=== PATIENT | female | born 1995 | race Two or more races ===

== ENCOUNTER → 2024-04-25 | Outpatient (CLI) | payer MEDICAID, SELFPAY ==
--- NOTE | 2024-04-25 10:24 | XR_ITS ---
Examination: OB Transvaginal ultrasound of the pelvis, complete Technique: Transvaginal sonographic images pelvis performed using kuhn scale imaging Exam date and time: April 25, 2024 at 1052 hours INDICATIONS: Vaginal bleeding and lower back pain beginning one week ago. FINDINGS: Uterus 11.0 x 7.2 x 7.9 cm anteverted pole 1.3 cm corresponds to 7 weeks 3 days gestational age No cardiac motion Right ovary 2.6 x 1.6 x 2.0 cm arterial flow Left ovary 1.8 x 2.4 x 1.6 cm arterial flow IMPRESSION: Findings suspicious for demise, short-term follow-up transvaginal pelvic sonography recommended.
== END | disposition home or self-care (01) ==
PROVIDERS: Referring Provider Obstetrics & Gynecology; Visit Provider Obstetrics & Gynecology
DX: O20.9 Hemorrhage in early pregnancy, unspecified (principal)
CPT/HCPCS: 76817

== ENCOUNTER 2024-11-01 09:22 | Outpatient (AMB) | payer MEDICAID, SELFPAY ==
[2024-11-01 09:34] VITALS: BP 123/77; PULSE 89; RESP 18; TEMP 36.7; O2SAT 96; BMI 22.4
--- NOTE | 2024-11-01 09:34 | AMB.OBINITIA ---
Vital Signs 11/01/24 09:34 Height 1.57 m Height Method Stated Weight 55.508 kg Weight Measurement Method Standing Scale BMI 22.4 BP 123/77 Blood Pressure Source Automatic Cuff Blood Pressure Location Left Upper Arm Position Sitting Respiration 18 Pulse 89 Pulse Source Monitor Temp 98.1 F Temp Source Oral Pulse Oximetry (%) 96 Oxygen Delivery Method Room Air Allergies/Home Meds Allergies & Medications Allergies No Known Allergies Allergy (Verified 11/01/24 09:35) Medication Reconciliation vitamin with calcium no.72-iron 27 mg-folic acid 1 mg tablet ( Vitamins Plus Low Iron) 1 tab PO QDAY 90 days #90 tabs 11/01/24 [Rx] Intake Visit Data Collection New Patient or Established: Established Patient (seen at [facility] within 3 years) Reason for Visit:: INITIAL CARE Seen by Clinical Staff ONLY (RN/MA): No Digital Composer Required: No Do You Feel Safe at Home: Yes Authorities Contacted: N/A PCP or OBGYN visit in last 3 months: No Hx Now: Yes Are you currently on any form of Control: No Last menstrual period: 08/29/24 Pain Present Currently: No Pain Scale Used: Ruiz-Santiago/Numerical Pain scale:: 0 Smoking Status Smoking Status: Never smoker Questionnaires Covid-19 Vaccine Questionnaire Has patient been vacinated for Covid-19 Have you been vacinated for Covid-19: Yes PHQ-9 PHQ-2 Over the last 2 weeks, how often have you been bothered by any of the following problems? 1. Little interest or pleasure in doing things: not at all 2. Feeling down, depressed, or hopeless: not at all Total score: 0 PHQ-9 3. Trouble falling or staying asleep, or sleeping too much: Not at all 4. Feeling tired or having little energy: Not at all 5. Poor appetite or overeating: Not at all 6. Feeling bad about yourself - or that you are a failure or have let yourself or your family down: Not at all 7. Trouble concentrating on things, such as reading the newspaper or watching television: Not at all 8. Moving or speaking so slowly that other people could have noticed? - Or the opposite - being so fidgety or restless that you have been moving around a lot more than usual: not at all 9. Thoughts that you would be better off or of hurting yourself in some way: Not at all Total score: 0 Source: Developed by Drs. Fabricio Torres, Juany Rivas, Luis Marshall and colleagues, with an educational cristo from [employer]. Depression screen completed yes Social History Living Situation History Marital Status: Lives With: Family Housing: House Housing Other:: Pt lives with and dtr Tobacco History Smoking Status: Never smoker Second Hand Smoke Exposure: No Alcohol History Alcohol Intake: Never Domestic Abuse History Do You Feel Safe at Home: Yes History of Present Illness HPI Narrative Marcia Loera, , presents for initial intake. LMP: 08-29-2024. CHERRIE based on U/S: June 05, 2025. Currently estimated at 9 weeks and 4 days gestation. OB History: - Prior pregnancies: , one vaginal delivery, one miscarriage requiring DNC in December of last year - Prior C-sections, miscarriages, ectopics, or terminations: Yes, one miscarriage requiring DNC in December of last Medical History: - Chronic conditions (e.g., DM, HTN, thyroid disease): None mentioned - Surgical history: DNC in December of last year - Medications: None mentioned - Allergies: None mentioned - Psychosocial: Tobacco [N], Alcohol [N], Illicit drugs [N] - IPV screening: [N], Depression screening: [N] Family History: - Genetic or congenital disorders: Patient's daughter has primary ciliary dyskinesia and dextrocardia - 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 Past Medical History: No Hx Neurological Disorders, No Hx Breast Cancer, No Hx Cardiac Disorders, No Hx Cancer, No Hx Blood Disorders, No Hx Gastrointestinal Disorders, No Hx Renal Disease, No Hx Diabetes Mellitus Type 1 and No Hx Diabetes Mellitus Type 2 OB Initial Visit OB Flowsheet OB Flowsheet Initial Weight: Not Recorded Date <del>?</del> EGA Weight BP Alb Glu CTX Pres Fundal ht FHR Mov Dilation Station Effacement Hx Notes Visit Note 11/01/24 <del>?</del> 9w 1d 55.508 kg 123/77 Marcia Loera, at 9+4 wks for initial intake, LMP 08-29-24, CHERRIE 2-2-26 per U/S, hx of and SAB requiring D&C 12/25, daughter with primary ciliary dyskinesia and dextrocardia U/S shows IUP with FHB 173 bpm confirming 9+4 wks Menstrual History Menstrual reliability: definite Flow: normal Menstrual regularity: regular Monthly: Yes Age at menarche: 10 On control pills at conception: No Associated symptoms (LMP): Reports nausea, breast tenderness and bloating OB History : 4 Para: 1 Hx Total # of Abortions (Spontaneous & Elective): 2 # of Living Children: 1 Delivery History 1st : Child's name: RUDY date: 08/27/19 sex: female Gestational age at delivery (weeks): 40 Delivery type: History of depression before or after : No Infection History & Risk Evaluation History of STDs: none Genetic Screening & History Genetic Screening/Teratology Counseling - Includes patient, baby's father, or anyone in either family with: 1. Patient's age 35 years or older as of estimated date of delivery: No 2. Thalassemia (Moroccan, Iraqi, Mediterranean, or Background); MCV less than 80: No 3. Neural Tube Defect (Meningomyelocele, Spina Bifida, or Anencephaly): No 4. Congenital Heart Defect: No 5. Down Syndrome: No 6. Jesús-Sachs (Ashkenazi Rastafarian, Cajun, [place] Islander): No 7. Mattie Disease (Ashkenazi Rastafarian): No 8. Familial Dysautonomia (Ashkenazi Rastafarian): No 9. Sickle Cell Disease or Trait (): No 10. Hemophilia or other blood disorders: No 11. Muscular Dystrophy: No 12. Cystic Fibrosis: No 13. Trace's Chorea: No 14. Mental Retardation/Autism: No 15. Other inherited genetic or chromosomal disorder: No 16. Maternal Metabolic Disorder (EG,TYPE 1 Diabetes, PKU): No 17. Patient or baby's father had a child with defects not listed above: No 18. Recurrent loss or a stillbirth: No 19. Medications (including supplements, vitamins, herbs or otc drugs)/illicit/recreational drugs/alcohol since last menstrual period: No 20. Any other: No Infection History 1. Live with someone with TB or exposed to TB: No 2. Rash or viral illness since last menstrual period: No 3. Hepatitis B,C: No Other (see comments) Source: [employer] Review of Systems Gastrointestinal Gastrointestinal: Reports bloating and Reports nausea Exam General General Appearance: alert, in no apparent distress and healthy appearing Head Head exam: atraumatic Neck Neck exam: Present normal inspection and trachea midline Chest Chest inspection: Present normal inspection and symmetric chest wall rise External exam: Present normal external exam; Absent tenderness Neuro Neurological exam: Present oriented X3 Psych Psychiatric exam: Present normal affect and normal mood Office Procedures OB Clinic LOC & Office Proc's Nursing/Assessment Patient Status: Established Patient OB Clinic Nursing Assessment: Medication Reconciliation, Update PMH in EMR and Vital Signs OB Clinic Coordination of Care: Complex Care and Chronic Disease 1-5, Consent,records obtained, informed consent, Education Simp Pt/Fam, Lab and Imaging orders, Results/Orders obtained and Staff clarify orders Special Needs: Heart tones Established Patient Charge Established Patient Point Assignment: 135 Established Patient Point Charge: EP Level 4 (120-155) Assessment & Plan Diagnosis / Problem List (1) with prior adverse outcome, antepartum: Status: Acute (2) Supervision of high risk , unspecified, first trimester: Status: Acute Plan - Ultrasound: - site: Visualized - heartbeat: 173 bpm (normal for early ) - Gestational age: 9 weeks and 4 days Labs Ordered Today: - Initial panel - Blood type & antibody screen - CBC, RPR, HIV, HBsAg, Rubella IgG - GC/CT, UA & culture, Varicella IgG, - NIPT, SMA and CF Screen Plan: - Routine care initiated - vitamins started - Ultrasound ordered to confirm dating - Genetic screening options reviewed and patient accepts - Referral to MFM or nutrition if indicated Educated the patient on the importance of care, including taking vitamins with folic acid, iron, and calcium. Emphasized avoiding alcohol, smoking, and certain medications. Discussed common symptoms like nausea and fatigue, advising small, frequent meals and adequate hydration. Explained the need for regular check-ups and recommended safe physical activities. Instructed on signs of complications, such as severe cramping or bleeding, and when to seek immediate medical attention. Highlighted the importance of a balanced diet and avoiding high-risk foods. Encouraged open communication about any concerns or questions. Encouraged keeping up with all appointments and tests.
== END 2024-11-01 10:03 | disposition home or self-care (01) ==
PROVIDERS: Supervising Provider Obstetrics & Gynecology; Visit Provider Obstetrics & Gynecology
DX: O09.291 Supervision of pregnancy with other poor reproductive or obstetric history, first trimester (principal); Z3A.09 9 weeks gestation of pregnancy; Z87.59 Personal history of other complications of pregnancy, childbirth and the puerperium
CPT/HCPCS: 99214; G0463

== ENCOUNTER 2024-11-15 13:28 | Outpatient (AMB) | payer MEDICAID, SELFPAY ==
[2024-11-15 13:33] VITALS: BP 122/84; PULSE 108; RESP 17; TEMP 36.7; O2SAT 98; BMI 22.8
--- NOTE | 2024-11-15 13:33 | AMB.OBVISIT ---
Vital Signs 11/15/24 13:33 Height 1.57 m Height Method Measured Weight 56.302 kg Weight Measurement Method Standing Scale BMI 22.8 BP 122/84 Blood Pressure Source Automatic Cuff Blood Pressure Location Right Upper Arm Position Sitting Respiration 17 Pulse 108 H Pulse Source Monitor Temp 98.1 F Temp Source Temporal Artery Scan Pulse Oximetry (%) 98 Oxygen Delivery Method Room Air Allergies/Home Meds Allergies & Medications Allergies No Known Allergies Allergy (Verified 11/15/24 13:34) Medication Reconciliation vitamin with calcium no.72-iron 27 mg-folic acid 1 mg tablet ( Vitamins Plus Low Iron) 1 tab PO QDAY 90 days #90 tabs 11/01/24 [Rx Confirmed 11/15/24] Intake Visit Data Collection New Patient or Established: Established Patient (seen at [facility] within 3 years) Reason for Visit:: OBC Consent obtained for Telemed Visit: No Seen by Clinical Staff ONLY (RN/MA): No Information Support Project Manager Required: No Do You Feel Safe at Home: Yes Authorities Contacted: N/A PCP or OBGYN visit in last 3 months: Yes Date of Last PCP or OBGYN visit: 11/01/24 Hx Now: Yes Are you currently on any form of Control: No Pain Present Currently: No Pain Scale Used: Ruiz-Santiago/Numerical Pain scale:: 0 Smoking Status Smoking Status: Never smoker Questionnaires Covid-19 Vaccine Questionnaire Has patient been vacinated for Covid-19 Have you been vacinated for Covid-19: Yes PHQ-9 PHQ-2 Over the last 2 weeks, how often have you been bothered by any of the following problems? 1. Little interest or pleasure in doing things: not at all PHQ-9 8. Moving or speaking so slowly that other people could have noticed? - Or the opposite - being so fidgety or restless that you have been moving around a lot more than usual: not at all Source: Developed by Drs. Fabricio Torres, Juany Rivas, Luis Marshall and colleagues, with an educational cristo from [employer]. 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 Past Medical History: No Hx Neurological Disorders, No Hx Breast Cancer, No Hx Cardiac Disorders, No Hx Cancer, No Hx Blood Disorders, No Hx Gastrointestinal Disorders, No Hx Renal Disease, No Hx Diabetes Mellitus Type 1 and No Hx Diabetes Mellitus Type 2 Care OB Visit Log OB Flowsheet Initial Weight: Not Recorded Date <del>?</del> EGA Weight BP Alb Glu CTX Pres Fundal ht FHR Mov Dilation Station Effacement Hx Notes Visit Note 11/01/24 <del>?</del> 9w 1d 55.508 kg 123/77 Marcia Loera, at 9+4 wks for initial intake, LMP 08-29-24, CHERRIE 06-05-25 per U/S, hx of and SAB requiring D&C 12/25, daughter with primary ciliary dyskinesia and dextrocardia U/S shows IUP with FHB 173 bpm confirming 9+4 wks 11/15/24 <del>?</del> 11w 1d 56.302 kg 122/84 165 , 11w3d. No CTX/LOF/VB, good FM. Hx primary ciliary dyskinesia. Prior US noted dextrocardia. All initial labs reassuring: O+, rubella immune, negative RPR/Hep B/C/HIV/GC/CT. CBC WNL. NIPT negative for aneuploidy, male fetus. SMA and CF screening negative. Plan: Referred urgently to [facility] at [facility] for further evaluation of dextrocardia and possible ciliary dyskinesia; appointment scheduled for next Thursday. Pt to bring labs to MFM visit. F/u in 2 weeks to review MFM findings. Continue vitamins. CHERRIE Calculator Estimated Delivery Date Method Current WG Current Estimate 06/05/25 LMP (Certain) 11w 3d Other Estimates 06/04/25 Ultrasound #1 11w 4d Specific Issue/Plans Laboratory, Imaging, and Diagnostic Test Results - Initial visit: - Blood group: O positive - Rubella: Immune - RPN: Non-reactive - Hepatitis B: Negative - Hepatitis C: Negative - Antibody screen: Negative - HIV: Negative - Gonorrhea: Negative - Chlamydia: Negative - CBC: Within normal limits - Hemoglobin: 12.2 g/dL - Platelets: 3005 (likely a trailhead maintenance worker error, should be 300.5) - NIPT (Non-Invasive Testing): Negative - sex: Male - SMA (Spinal Muscular Atrophy) testing: Negative Office Procedures OB Clinic LOC & Office Proc's Nursing/Assessment Patient Status: Established Patient OB Clinic Nursing Assessment: Medication Reconciliation, Update PMH in EMR and Vital Signs OB Clinic Coordination of Care: Complex Care and Chronic Disease 1-5, Consent,records obtained, informed consent, Education Simp Pt/Fam and 4+ Authorizations needed Special Needs: Heart tones Established Patient Charge Established Patient Point Assignment: 130 Established Patient Point Charge: EP Level 4 (120-155) Assessment & Plan Diagnosis / Problem List (1) Supervision of high risk , unspecified, first trimester: Status: Acute (2) with prior adverse outcome, antepartum: Status: Acute Plan Marcia Ferrara, female patient with a history of primary ciliary dyskinesia, presenting for follow-up of with dextrocardia detected on previous ultrasound. with dextrocardia Assessment: Patient is with dextrocardia detected on previous ultrasound. Given the patient's history of primary ciliary dyskinesia, there is concern for potential ciliary dyskinesia as well, as this condition can cause dextrocardia. Initial screening tests, including blood type (O positive), rubella immunity, RPR, hepatitis B and C, HIV, gonorrhea, and chlamydia, were all negative or within normal limits. CBC showed normal hemoglobin (12.2) and platelets (3005). Non-invasive testing (NIPT) was negative for common chromosomal abnormalities, and gender was consistent with male. Spinal muscular atrophy (SMA) testing and cystic fibrosis carrier screening were both negative. 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 History & Symptoms: Ask about nausea, vomiting, bleeding, or cramping. Screen for mental health concerns. Physical Exam: Check weight, blood pressure, and heart rate (via Doppler). Education: Discuss nutrition, exercise, and avoiding harmful substances. Review safe medications and warning signs (e.g., severe pain, bleeding). Screening Tests: Offer genetic screening if not done. Discuss upcoming anatomy scan (18-20 weeks). Plan: Schedule next visit (typically 4 weeks later) and any needed tests. Keep it supportive, address concerns, and ensure clear follow-up instructions.
== END 2024-11-15 14:33 | disposition home or self-care (01) ==
LOC: HODSOBC 13:28
PROVIDERS: PCP Obstetrics & Gynecology; Referring Provider Obstetrics & Gynecology; Supervising Provider Obstetrics & Gynecology; Visit Provider Obstetrics & Gynecology
DX: O09.891 Supervision of other high risk pregnancies, first trimester (principal); O35.BXX0 Maternal care for other (suspected) fetal abnormality and damage, fetal cardiac anomalies, not applicable or unspecified; O35.8XX0 Maternal care for other (suspected) fetal abnormality and damage, not applicable or unspecified; O99.511 Diseases of the respiratory system complicating pregnancy, first trimester; Q34.8 Other specified congenital malformations of respiratory system; Z3A.11 11 weeks gestation of pregnancy
CPT/HCPCS: 99214; G0463

== ENCOUNTER 2024-12-05 10:21 | Outpatient (AMB) | payer MEDICAID, SELFPAY ==
[2024-12-05 10:28] VITALS: BP 118/82; PULSE 89; RESP 16; TEMP 36.5; O2SAT 98; BMI 22.8
--- NOTE | 2024-12-05 10:28 | AMB.OBVISIT ---
Vital Signs 12/05/24 10:28 Height 1.57 m Height Method Stated Weight 56.472 kg Weight Measurement Method Standing Scale BMI 22.8 BP 118/82 Blood Pressure Source Automatic Cuff Blood Pressure Location Left Upper Arm Position Sitting Respiration 16 Pulse 89 Pulse Source Monitor Temp 97.7 F Temp Source Oral Pulse Oximetry (%) 98 Oxygen Delivery Method Room Air Allergies/Home Meds Allergies & Medications Allergies No Known Allergies Allergy (Verified 12/05/24 10:29) Medication Reconciliation vitamins with calcium no.72-iron 27 mg-folic acid 1 mg tablet ( Vitamins Plus Low Iron) 1 tab PO QDAY 90 days #90 tabs 11/01/24 [Rx Confirmed 12/05/24] Intake Visit Data Collection New Patient or Established: Established Patient (seen at [facility] within 3 years) Reason for Visit:: CARE Seen by Clinical Staff ONLY (RN/MA): No 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 1. Little interest or pleasure in doing things: not at all 2. Feeling down, depressed, or hopeless: not at all Total score: 0 PHQ-9 3. Trouble falling or staying asleep, or sleeping too much: Not at all 4. Feeling tired or having little energy: Not at all 5. Poor appetite or overeating: Not at all 6. Feeling bad about yourself - or that you are a failure or have let yourself or your family down: Not at all 7. Trouble concentrating on things, such as reading the newspaper or watching television: Not at all 8. Moving or speaking so slowly that other people could have noticed? - Or the opposite - being so fidgety or restless that you have been moving around a lot more than usual: not at all 9. Thoughts that you would be better off or of hurting yourself in some way: Not at all Total score: 0 Source: Developed by Drs. Fabricio Torres, Juany Rivas, Luis Marshall and colleagues, with an educational cristo from [employer]. 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 Past Medical History: No Hx Neurological Disorders, No Hx Breast Cancer, No Hx Cardiac Disorders, No Hx Cancer, No Hx Blood Disorders, No Hx Gastrointestinal Disorders, No Hx Renal Disease, No Hx Diabetes Mellitus Type 1 and No Hx Diabetes Mellitus Type 2 Care OB Visit Log OB Flowsheet Initial Weight: Not Recorded Date <del>?</del> EGA Weight BP Alb Glu CTX Pres Fundal ht FHR Mov Dilation Station Effacement Hx Notes Visit Note 11/01/24 <del>?</del> 9w 1d 55.508 kg 123/77 Marcia Loera, at 9+4 wks for initial intake, LMP 08-29-24, CHERRIE 2 per U/S, hx of and SAB requiring D&C 12/25, daughter with primary ciliary dyskinesia and dextrocardia U/S shows IUP with FHB 173 bpm confirming 9+4 wks 11/15/24 <del>?</del> 11w 1d 56.302 kg 122/84 165 , 11w3d. No CTX/LOF/VB, good FM. Hx primary ciliary dyskinesia. Prior US noted dextrocardia. All initial labs reassuring: O+, rubella immune, negative RPR/Hep B/C/HIV/GC/CT. CBC WNL. NIPT negative for aneuploidy, male fetus. SMA and CF screening negative. Plan: Referred urgently to [facility] at [facility] for further evaluation of dextrocardia and possible ciliary dyskinesia; appointment scheduled for next Thursday. Pt to bring labs to MFM visit. F/u in 2 weeks to review MFM findings. Continue vitamins. 12/05/24 <del>?</del> 14w 0d 56.472 kg 118/82 absent 155 - Marcia Ferrara is a female presenting for a follow-up visit regarding her . - Patient had an ultrasound on November 25 at [facility]. - Reports being told by the environmental compliance technician that it was good - Denies significant weight gain at this stage of - Reports some forgetfulness, which she attributes to hormones - Continues to take prescribed vitamins Plan - Schedule next appointment in 2 months - Continue taking vitamins - Attend 18-20 week ultrasound appointment in January - Follow all precautions - Return sooner if any issues arise CHERRIE Calculator Estimated Delivery Date Method Current WG Current Estimate 06/05/25 LMP (Certain) 20w 6d Other Estimates 06/04/25 Ultrasound #1 21w 0d Specific Issue/Plans Laboratory, Imaging, and Diagnostic Test Results - Initial visit: - Blood group: O positive - Rubella: Immune - RPN: Non-reactive - Hepatitis B: Negative - Hepatitis C: Negative - Antibody screen: Negative - HIV: Negative - Gonorrhea: Negative - Chlamydia: Negative - CBC: Within normal limits - Hemoglobin: 12.2 g/dL - Platelets: 3005 (likely a health researcher error, should be 300.5) - NIPT (Non-Invasive Testing): Negative - sex: Male - SMA (Spinal Muscular Atrophy) testing: Negative Office Procedures OB Clinic LOC & Office Proc's Nursing/Assessment Patient Status: Established Patient OB Clinic Nursing Assessment: Medication Reconciliation, Update PMH in EMR and Vital Signs OB Clinic Coordination of Care: Complex Care and Chronic Disease 1-5, Consent,records obtained, informed consent, Education Simp Pt/Fam, 1 Ins Authorization, Lab and Imaging orders, Results/Orders obtained and Staff clarify orders Special Needs: Heart tones Established Patient Charge Established Patient Point Assignment: 150 Established Patient Point Charge: EP Level 4 (120-155) Assessment & Plan Diagnosis / Problem List (1) Supervision of high risk , unspecified, first trimester: Status: Acute (2) with prior adverse outcome, antepartum: Status: Acute Plan Problem List - , normal Assessment The patient's recent ultrasound at [facility] on the showed no abnormalities, with the clinician reporting that everything was good. This is particularly significant given the previous concern for dextrocardia. Blood tests were all negative, indicating no genetic problems. The fetus appears to be developing normally at this stage, with no structural issues detected. The patient's weight gain is currently minimal, which is considered normal for this stage of . Plan - Schedule next appointment in 2 months - Continue taking vitamins - Attend 18-20 week ultrasound appointment in January - Follow all precautions - Return sooner if any issues arise This visit does not meet the criteria for the provided format request. The patient is not beyond 20 weeks gestation, and this does not appear to be a third-trimester visit. The transcript indicates the patient is in early , with an upcoming anatomy scan scheduled at 18-20 weeks. Therefore, the provided format is not applicable to this visit.
== END 2024-12-05 10:52 | disposition home or self-care (01) ==
LOC: HODSOBC 10:21
PROVIDERS: Supervising Provider Obstetrics & Gynecology; Visit Provider Obstetrics & Gynecology
DX: O09.292 Supervision of pregnancy with other poor reproductive or obstetric history, second trimester (principal); Z3A.14 14 weeks gestation of pregnancy
CPT/HCPCS: 99214; G0463

== ENCOUNTER 2025-01-24 10:53 | Outpatient (AMB) | payer MEDICAID, SELFPAY ==
[2025-01-24 11:05] VITALS: BP 121/82; PULSE 108; RESP 18; TEMP 36.6; O2SAT 96; BMI 24.3
--- NOTE | 2025-01-24 11:05 | OBCLNT_ITS ---
Vital Signs 01/24/25 11:05 Height 1.57 m Height Method Measured Weight 59.988 kg Weight Measurement Method Standing Scale BMI 24.3 BP 121/82 Blood Pressure Source Automatic Cuff Blood Pressure Location Right Upper Arm Position Sitting Respiration 18 Pulse 108 H Pulse Source Monitor Temp 97.9 F Temp Source Temporal Artery Scan Pulse Oximetry (%) 96 Oxygen Delivery Method Room Air Allergies/Home Meds Allergies & Medications Allergies No Known Allergies Allergy (Verified 12/05/24 10:29) Intake Visit Data Collection New Patient or Established: Established Patient (seen at [facility] within 3 years) Reason for Visit:: OBC FOLLOW UP PT HERE FOR NOSE BLEEDS X 2 AND LOWER BACK PAIN SINCE THURSDAY Do You Feel Safe at Home: Yes Authorities Contacted: N/A PCP or OBGYN visit in last 3 months: Yes Date of Last PCP or OBGYN visit: 12/05/24 Hx Now: Yes Pain Present Currently: Yes Pain Location: Back (LOWER BACK ) Pain scale:: 8 Smoking Status Smoking Status: Never smoker Questionnaires PHQ-9 PHQ-2 Over the last 2 weeks, how often have you been bothered by any of the following problems? 1. Little interest or pleasure in doing things: not at all PHQ-9 8. Moving or speaking so slowly that other people could have noticed? - Or the opposite - being so fidgety or restless that you have been moving around a lot more than usual: not at all Source: Developed by Drs. Fabricio Torres, Juany Rivas, Luis Marshall and colleagues, with an educational cristo from [employer]. 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 Past Medical History: No Hx Neurological Disorders, No Hx Breast Cancer, No Hx Cardiac Disorders, No Hx Cancer, No Hx Blood Disorders, No Hx Gastrointestinal Disorders, No Hx Renal Disease, No Hx Diabetes Mellitus Type 1 and No Hx Diabetes Mellitus Type 2 Care OB Visit Log OB Flowsheet Initial Weight: Not Recorded Date -?-?-?-?-?-?-?-?-?-?-?-?- EGA Weight BP Alb Glu CTX Pres Fundal ht FHR Mov Dilation Station Effa cement Hx Notes Visit Note 11/01/24 -?-?-?-?-?-?-?-?-?-?-?-?- 9w 1d 55.508 kg 123/77 Marcia Loera, at 9+4 wks for initial intake, LMP 4-25, CHERRIE 2-2-26 per U/S, hx of and SAB requiring D&C 12/25, 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 No CTX/LOF/VB, good FM. Hx primary ciliary dyskinesia. Prior US noted dextrocardia. All initial labs reassuring: O+, rubella immune, negative RPR/Hep B/C/HIV/GC/CT. CBC WNL. NIPT negative for aneuploidy, male fetus. SMA and CF screening negative. Plan: Referred urgently to [facility] at [facility] for further evaluation of dextrocardia and possible ciliary dyskinesia; appointment scheduled for next Thursday. Pt to bring labs to [facility] visit. F/u in 2 weeks to review MFM findings. Continue vitamins. 12/05/24 -?-?-?-?-?-?-?-?-?-?-?-?- 14w 0d 56.472 kg 118/82 absent 155 - Marcia Ferrara is a female presenting for a follow-up visit regarding her . - Patient had an ultrasound on November 25 at [facility]. - Reports being told by the termite technician that it was good - Denies significant weight gain at this stage of - Reports some forgetfulness, which she attributes to hormones - Continues to take prescribed vitamins Plan - Schedule next appointment in 2 months - Continue taking vitamins - Attend 18-20 week ultrasound appointme nt in January - Follow all precautions - Return sooner if any issues arise 01/24/25 -?-?-?-?-?-?-?-?-?-?-?-?- 21w 1d 59.988 kg 121/82 absent unstable 167 active - She reports lower back pain that started on Thursday. - Pain occurs when lying down and tryi ng to turn over - No specific trigger identified such as lifting or twisting - Patient notes that since starting pr egnancy, she has experienced what she thought was normal stretching, but lately the pain has been more pronounced - She reports nosebleeds occurring twice this past week. - Episodes occurred while working with out any identified trigger - Initially thought symptoms might be related to illness or allergies - Bleeding was not severe and did not require holding pressure - She denies UTI symptoms including freq uency and urgency. - She denies uterine cramping. Plan - Ultrasound of kidneys and baby at [facility] - Basic blood work - Urine analysis - Follow-up appointment in 4 weeks - Next ultrasound to check on pyelectasi s CHERRIE Calculator Estimated Delivery Date Method Current WG Current Estimate 06/05/25 LMP (Certain) 21w 1d Other Estimates 06/04/25 Ultrasound #1 21w 2d Specific Issue/Plans Laboratory, Imaging, and Diagnostic Test Results - Initial visit: - Blood group: O positive - Rubella: Immune - RPN: Non-reactive - Hepatitis B: Negative - Hepatitis C: Negative - Antibody screen: Negative - HIV: Negative - Gonorrhea: Negative - Chlamydia: Negative - CBC: Within normal limits - Hemoglobin: 12.2 g/dL - Platelets: 3005 (likely a leisure travel agent error, should be 300.5) - NIPT (Non-Invasive Testing): Negative - sex: Male - SMA (Spinal Muscular Atrophy) testing: Negative Notes Visit Date: 01/24/25 Last Updated by: Mayito De La Cruz MD - [facility] ultrasound (January 10, 2025): Single living fetus, gestational age 18 weeks and 4 days, normal amniotic fluid, mild pyelectasis 5.2 mm on the left and 4.6 mm on the right, bladder appeared normal, ureters were not seen, cervix 3.3 centimeters with no funneling, placenta fundal posterior with no previa, normal uterus and adnexa Problem List - , 21 weeks and 1 day - Nosebleeds - Low back pain - Pyelectasis of fetus - History of dextrocardia in previous - History of primary ciliary dyskinesia in previous Office Procedures OBC Clinic LOC & Office Proc's Nursing/Assessment Patient Status: Established Patient OB Clinic Nursing Assessment: Medication Reconciliation, Update PMH in EMR and Vital Signs OB Clinic Coordination of Care: Complex Care and Chronic Disease 1-5, Education Complex Pt/Fam, Consent,records obtained, informed consent and Lab and Imaging orders Special Needs: Heart tones Established Patient Charge Established Patient Point Assignment: 125 Established Patient Point Charge: EP Level 4 (120-155) Assessment & Plan Diagnosis / Problem List (1) Supervision of high risk , unspecified, first trimester: Status: Acute (2) with prior adverse outcome, antepartum: Status: Acute Plan Problem List - , 21 weeks and 1 day - Nosebleeds - Low back pain - Pyelectasis of fetus - History of dextrocardia in previous - History of primary ciliary dyskinesia in previous Assessment at 21 weeks and 1 day gestation presenting for visit with multiple concerns. Patient reports nosebleeds occurring twice in the past week without significant bleeding. Lower back pain noted since Thursday, exacerbated when changing positions while lying down. Recent MFM ultrasound at 18 weeks 4 days showed a single living fetus with normal amniotic fluid, mild bilateral renal pyelectasis (left 5.2 mm, right 4.6 mm), normal bladder, cervical length 3.3 cm without funneling, and fundal posterior placenta without previa. Patient has a history of previous with dextrocardia and primary ciliary dyskinesia. No signs of urinary tract infection or uterine cramping reported. Plan - Ultrasound of kidneys and baby at hospital - Basic blood work - Urine analysis - Follow-up appointment in 4 weeks - Next ultrasound to check on pyelectasis 1. Progress Reviewed gestational age (21 weeks and 1 day), growth, and heart rate (167 bpm normal). Planned frequent visits (every 2 weeks until 36 weeks, then weekly). 2. Instructed patient to monitor movements and report decreases immediately. 3. Testing Counseled on routine third-trimester labs per guidelines. Discussed potential need for ultrasound or monitoring based on risk factors. 4. Preeclampsia Precaution Educated on preeclampsia signs: severe headache, vision changes, right upper quadrant pain, sudden swelling. Advised urgent reporting of symptoms and discussed blood pressure monitoring if high risk. 5. Labor Precautions Reviewed labor signs: regular contractions, pelvic pressure, back pain, bleeding, or fluid leakage. Instructed to seek immediate care for these symptoms. 6. Lifestyle and Delivery Preparation Reinforced vitamins, nutrition, and safe activity. Discussed plan, pain management, and . Advised on labor preparation (e.g., hospital bag) and expectations. 7. Psychosocial Support Assessed emotional well-being and offered resources for mental health or parenting support.
== END 2025-01-24 11:24 | disposition home or self-care (01) ==
LOC: HODSOBC 10:53
PROVIDERS: Supervising Provider Obstetrics & Gynecology; Visit Provider Obstetrics & Gynecology
DX: O09.292 Supervision of pregnancy with other poor reproductive or obstetric history, second trimester (principal); O09.892 Supervision of other high risk pregnancies, second trimester; O99.891 Other specified diseases and conditions complicating pregnancy; N13.30 Unspecified hydronephrosis; Z3A.21 21 weeks gestation of pregnancy; Z87.59 Personal history of other complications of pregnancy, childbirth and the puerperium
CPT/HCPCS: 99214; G0463

== ENCOUNTER 2025-01-24 11:34 | Observation (INO) | payer MEDICAID, SELFPAY ==
--- NOTE | 2025-01-24 11:37 | XR_ITS ---
Examination: Retroperitoneal ultrasound, complete Technique: Multiple high resolution grayscale images of the retroperitoneum obtained, including kidneys and bladder. Exam date and time:January 24, 2025 1240 hours INDICATIONS: Back pain flank pain beginning 4 days ago FINDINGS: Right kidney 11.0 cm cortex 1.5 cm Minimal right hydronephrosis Left kidney 11.3 cm cortex 2.2 cm Minimal hydronephrosis. No renal calculi. Contracted urinary bladder IMPRESSION: Minimal bilateral hydronephrosis No renal calculi No renal edema
[2025-01-24 11:44] VITALS: PULSE 96; O2SAT 99
[2025-01-24 11:45] VITALS: BP 112/69; PULSE 91; RESP 17; RESP 98; TEMP 36.7; BMI 25.0
[2025-01-24 11:46] VITALS: BP 112/69; PULSE 91
--- NOTE | 2025-01-24 12:00 | XR_ITS ---
Examination: Complete OB ultrasound greater than 14 weeks Date and time of exam: January 24, 2025 1216 hours INDICATIONS: Flank pain pelvic pain beginning 4 days ago Findings: Viable intrauterine single fetus with single amniotic sac presentation cephalic Cardiac motion 155 BPM Placenta posterior grade 1 Umbilical cord insertion 3 vessel seen Amniotic fluid index 15.2 cm Cervix 3.0 cm Right ovary 2.7 cm arterial flow Left ovary 3.2 cm arterial flow Lower uterine segment mass 29 x 35 mm consistent with fibroid degeneration. Composite estimated gestational age based on BPD, head circumference, abdominal circumference, femur length is 21 weeks 4 days Estimated weight 451 g. Survey of intracranial anatomy, spinal anatomy, abdominal anatomy, four-chamber heart performed with no abnormalities identified. Impression: Viable intrauterine gestation cephalic presentation Estimated gestational age 21 weeks 4 days Estimated weight 451 g.
[2025-01-24 12:19] LABS: Collection Type, Urine Clean Catch
[2025-01-24 12:22] LABS: Basophils # (Auto) 0.1 Thou/mm3 (0.0-0.2); Basophils % (Auto) 1 % (0-2.5); Eosinophils # (Auto) 0.1 Thou/mm3 (0.0-0.5); Eosinophils % (Auto) 2 % (0-10); Hematocrit 31.9 % (36.0-46.0); Hemoglobin 11.1 g/dL (12.0-16.0); Immature Granulocytes Auto 0.03 Thou/mm3 (0.00-0.00); Lymphocytes # (Auto) 1.3 Thou/mm3 (1.0-4.8); Lymphocytes % (Auto) 18 % (10-50); Mean Corpuscular HGB Conc 34.8 g/dl (31.0-37.0); Mean Corpuscular Hemoglobin 30.9 pg (25.0-35.0); Mean Corpuscular Volume 89 fL (80-100); Monocytes # (Auto) 0.7 Thou/mm3 (0.0-0.8); Monocytes % (Auto) 9 % (0-12); Neutrophils # (Auto) 4.9 Thou/mm3 (1.8-7.7); Neutrophils % (Auto) 70 % (37-80); Nucleated Red Blood Cell # 0.00 Thou/mm3 (0.00-0.00); Nucleated Red Blood Cell % 0 /100 WBC (0); Platelet Count 256 Thou/mm3 (140-440); RDW Standard Deviation 45.4 fL (36.4-46.3); Red Blood Count 3.59 Miln/mm3 (4.00-5.20); White Blood Count 7.1 Thou/mm3 (3.6-11.0)
[2025-01-24 12:48] LABS: Amorphous Crystals,Urine Present (Absent); Bilirubin,Urine Negative (Negative); Blood,Urine Negative (Negative); Color,Urine Yellow (Lt Yel-Yel); Glucose, Urine Negative (Negative); Ketones,Urine Negative (Negative); Leukocyte Esterase,Urine Positive (Negative); Nitrite,Urine Negative (Negative); PH,Urine 7.5 (5.0-7.0); Protein,Urine Negative (Neg - Trace); RBC,Urine 3 /hpf (0-3); Specific Gravity,Urine 1.024 (1.001-1.035); Squamous Epithelial Cell,Urine 2 /hpf (0-5); Urobilinogen,Urine Negative mg/dL (0.0-1.0); WBC,Urine 5 /hpf (0-5)
[2025-01-24 13:01] LABS: Clarity,Urine Hazy (Clear/Hazy)
== END 2025-01-24 13:56 | disposition home or self-care (01) ==
PROVIDERS: Admitting Provider Obstetrics & Gynecology; Visit Provider Obstetrics & Gynecology
DX: O99.891 Other specified diseases and conditions complicating pregnancy (principal); N13.30 Unspecified hydronephrosis; Z3A.21 21 weeks gestation of pregnancy
CPT/HCPCS: 36415; 59899; 76770; 76805; 81001; 85025

== ENCOUNTER 2025-01-31 23:55 | Observation (INO) | payer MEDICAID, SELFPAY ==
[2025-02-01] VITALS (12 sets, daily range): BP systolic 120; BP diastolic 77; PULSE 79–129; RESP 18–99; TEMP 36.8; O2SAT 100; BMI 25.4
[2025-02-01] MEDS: RINGERS LACTATED 1000 ML 1,000 ML 999 ML IV (00:35)
--- NOTE | 2025-02-01 00:40 | XR_ITS ---
Examination: Complete OB ultrasound greater than 14 weeks Date and time of exam: February 01, 2025 0130 hrs. Indications: Vaginal bleeding beginning last night Findings: Viable intrauterine single fetus with single amniotic sac presentation Vertex Cardiac motion 140 BPM Placenta posterior grade 2 Umbilical cord insertion seen Amniotic fluid index are degraded 4 cm Cervix ovaries obscured by bowel gas. Composite estimated gestational age based on BPD, head circumference, abdominal circumference, femur length is 23 weeks 3 days Estimated weight 513.5 g. Survey of intracranial anatomy, spinal anatomy, abdominal anatomy, four-chamber heart performed with no abnormalities identified. Impression: Viable intrauterine gestation vertex presentation.
[2025-02-01 00:42] LABS: Collection Type, Urine Clean Catch; Squamous Epithelial Cell,Urine 0 /hpf (0-5)
[2025-02-01 00:49] LABS: Bilirubin,Urine Negative (Negative); Blood,Urine 3+ (Negative); Clarity,Urine Clear (Clear/Hazy); Color,Urine Lt-Yellow (Lt Yel-Yel); Glucose, Urine Negative (Negative); Ketones,Urine Negative (Negative); Leukocyte Esterase,Urine Negative (Negative); Nitrite,Urine Negative (Negative); PH,Urine 6.5 (5.0-7.0); Protein,Urine Negative (Neg - Trace); RBC,Urine 61 /hpf (0-3); Specific Gravity,Urine 1.009 (1.001-1.035); Urobilinogen,Urine Negative mg/dL (0.0-1.0); WBC,Urine 20 /hpf (0-5)
[2025-02-01] MEDS: RINGERS LACTATED 1000 ML 1,000 ML 125 ML IV (01:58)
--- NOTE | 2025-02-01 03:13 | PRELIM_ITS ---
Obstetric ultrasound (transabdominal and transvaginal). February 01, 2025 at 0130 hours Clinical history: Bleeding. Technique: Real-time ultrasound was performed using Duplex scanning including arterial inflow, venous outflow, color and spectral Doppler analysis of both ovaries. Comparison: No prior study is available for comparison. Findings: Single live intrauterine gestation with estimated weight of 513 g, CHERRIE May 28Jan2025. presentation is vertex. Heart rate 140 bpm. anatomic survey is normal. Amniotic fluid index is 13.4 cm. The maternal ovaries are not identified. The cervix is not visualized. No hemorrhages identified. Impression: Unremarkable intrauterine gestation. Nonvisualized cervix. Report Electronically Signed By: Taurus Wu 02/01/2025 3:12:26 AM [EST]
== END 2025-02-01 03:42 | disposition home or self-care (01) ==
PROVIDERS: Admitting Provider Obstetrics & Gynecology; Visit Provider Obstetrics & Gynecology
DX: O26.852 Spotting complicating pregnancy, second trimester (principal); O26.892 Other specified pregnancy related conditions, second trimester; R10.30 Lower abdominal pain, unspecified; Z3A.23 23 weeks gestation of pregnancy
CPT/HCPCS: 59899; 76805; 81001; J7120; A9270

== ENCOUNTER 2025-02-06 09:58 | Outpatient (AMB) | payer MEDICAID, SELFPAY ==
[2025-02-06 10:15] VITALS: BP 115/76; PULSE 101; RESP 18; TEMP 36.5; O2SAT 97; BMI 25.3
--- NOTE | 2025-02-06 10:15 | OBCLNT_ITS ---
Vital Signs 02/06/25 10:15 Height 1.55 m Height Method Stated Weight 60.895 kg Weight Measurement Method Standing Scale BMI 25.3 BP 115/76 Blood Pressure Source Automatic Cuff Blood Pressure Location Left Upper Arm Position Sitting Respiration 18 Pulse 101 H Pulse Source Monitor Temp 97.7 F Temp Source Oral Pulse Oximetry (%) 97 Oxygen Delivery Method Room Air Allergies/Home Meds Allergies & Medications Allergies No Known Allergies Allergy (Verified 03/08/25 11:06) Medication Reconciliation vitamins with calcium no.72-iron 27 mg-folic acid 1 mg tablet ( Vitamins Plus Low Iron) 1 tab PO QDAY 90 days #90 tabs 11/01/24 [Rx Confirmed 03/08/25] Intake Visit Data Collection New Patient or Established: Established Patient (seen at [facility] within 3 years) Reason for Visit:: CARE Seen by Clinical Staff ONLY (RN/MA): No 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 1. Little interest or pleasure in doing things: not at all 2. Feeling down, depressed, or hopeless: not at all Total score: 0 PHQ-9 3. Trouble falling or staying asleep, or sleeping too much: Not at all 4. Feeling tired or having little energy: Not at all 5. Poor appetite or overeating: Not at all 6. Feeling bad about yourself - or that you are a failure or have let yourself or your family down: Not at all 7. Trouble concentrating on things, such as reading the newspaper or watching television: Not at all 8. Moving or speaking so slowly that other people could have noticed? - Or the opposite - being so fidgety or restless that you have been moving around a lot more than usual: not at all 9. Thoughts that you would be better off or of hurting yourself in some way: Not at all Total score: 0 Source: Developed by Drs. Fabricio Torres, Juany Rivas, Luis Marshall and colleagues, with an educational cristo from [employer]. 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 Past Medical History: No Hx Neurological Disorders, No Hx Breast Cancer, No Hx Cardiac Disorders, No Hx Cancer, No Hx Blood Disorders, No Hx Gastrointestinal Disorders, No Hx Renal Disease, No Hx Diabetes Mellitus Type 1 and No Hx Diabetes Mellitus Type 2 Care OB Visit Log OB Flowsheet Initial Weight: Not Recorded Date -?-?-?-?-?-?-?-?-?-?-?-?- EGA Weight BP Alb Glu CTX Pres Fundal ht FHR Mov Dilation Station Effacement Hx Notes Visit Note 11/01/24 -?-?-?-?-?-?-?-?-?-?-?-?- 9w 1d 55.508 kg 123/77 Marcia Loera, at 9+4 wks for initial intake, LMP 4-25, CHERRIE 2-2-26 per U/S, hx of and SAB requiring D&C 12/25, 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 No CTX/LOF/VB, good FM. Hx primary ciliary dyskinesia. Prior US noted dextrocardia. All initial labs reassuring: O+, rubella immune, negative RPR/Hep B/C/HIV/GC/CT. CBC WNL. NIPT negative for aneuploidy, male fetus. SMA and CF screening negative. Plan: Referred urgently to MFM at [facility] for further evaluation of dextrocardia and possible ciliary dyskinesia; appointment scheduled for next Thursday. Pt to bring labs to [facility] visit. F/u in 2 weeks to review MFM findings. Continue vitamins. 12/05/24 -?-?-?-?-?-?-?-?-?-?-?-?- 14w 0d 56.472 kg 118/82 absent 155 - Marcia Ferrara is a female presenting for a follow-up visit regarding her . - Patient had an ultrasound on November 25 at [facility]. - Reports being told by the photonic laboratory technician that it was good - Denies significant weight gain at this stage of - Reports some forgetfulness, which she attributes to hormones - Continues to take prescribed vitamins Plan - Schedule next appointment in 2 months - Continue taking vitamins - Attend 18-20 week ultrasound appointme nt in January - Follow all precautions - Return sooner if any issues arise 01/24/25 -?-?-?-?-?-?-?-?-?-?-?-?- 21w 1d 59.988 kg 121/82 absent unstable 167 active - She reports lower back pain that started on Thursday. - Pain occurs when lying down and tryi ng to turn over - No specific trigger identified such as lifting or twisting - Patient notes that since starting pr egnancy, she has experienced what she thought was normal stretching, but lately the pain has been more pronounced - She reports nosebleeds occurring twice this past week. - Episodes occurred while working with out any identified trigger - Initially thought symptoms might be related to illness or allergies - Bleeding was not severe and did not require holding pressure - She denies UTI symptoms including freq uency and urgency. - She denies uterine cramping. Plan - Ultrasound [facility] kidneys [facility] baby [facility] - Basic blood work - Urine analysis - Follow-up appointment in 4 weeks - Next ultrasound to check on pyelectasi s 02/06/25 -?-?-?-?-?-?-?-?-?-?-?-?- 23w 0d 60.895 kg 115/76 absent unstable 160 active - She reports an episode of bleeding approximately one week ago. - Bleeding has since resolved. - Ultrasound performed during that vis it showed everything looked good. - She is experiencing significant back p ain that she describes as sciatica. - Pain starts from the buttock and rad iates down. - Back pain is impacting her ability t o work, making it more and more tough. 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 - She reports no contractions, cramping, or other problems currently. - She feels she is not gaining a lot of weight but is eating adequately. - She denies indigestion or loose motion s. - Previous complaint of nosebleeds from last appointment has resolv ed. - Provide disability note for patient to stop working immediately due to high-risk factors and heavy lifting (40 pounds) at work - Schedule follow-up appointment in 4 we eks - Order one-hour glucose test for diabet es screening - Recommend support belt for b ack pain relief CHERRIE Calculator Estimated Delivery Date Method Current WG Current Estimate 06/05/25 LMP (Certain) 28w 5d Other Estimates 06/04/25 Ultrasound #1 28w 6d Specific Issue/Plans Laboratory, Imaging, and Diagnostic Test Results - Initial visit: - Blood group: O positive - Rubella: Immune - RPN: Non-reactive - Hepatitis B: Negative - Hepatitis C: Negative - Antibody screen: Negative - HIV: Negative - Gonorrhea: Negative - Chlamydia: Negative - CBC: Within normal limits - Hemoglobin: 12.2 g/dL - Platelets: 3005 (likely a manager infusion error, should be 300.5) - NIPT (Non-Invasive Testing): Negative - sex: Male - SMA (Spinal Muscular Atrophy) testing: Negative Notes Visit Date: 01/24/25 Last Updated by: Mayito De La Cruz MD - [facility] ultrasound (January 10, 2025): Single living fetus, gestational age 18 weeks and 4 days, normal amniotic fluid, mild pyelectasis 5.2 mm on the left and 4.6 mm on the right, bladder appeared normal, ureters were not seen, cervix 3.3 centimeters with no funneling, placenta fundal posterior with no previa, normal uterus and adnexa Problem List - , 21 weeks and 1 day - Nosebleeds - Low back pain - Pyelectasis of fetus - History of dextrocardia in previous - History of primary ciliary dyskinesia in previous Office Procedures OBC Clinic LOC & Office Proc's Nursing/Assessment Patient Status: Established Patient OB Clinic Nursing Assessment: Medication Reconciliation, Update PMH in EMR and Vital Signs OB Clinic Coordination of Care: Complex Care and Chronic Disease 1-5, Consent,records obtained, informed consent, Education Simp Pt/Fam, Lab and Imaging orders, Results/Orders obtained and Staff clarify orders Established Patient Charge Established Patient Point Assignment: 105 Established Patient Point Charge: EP Level 3 (80-115) Assessment & Plan Diagnosis / Problem List (1) Supervision of high risk , unspecified, first trimester: Status: Acute (2) with prior adverse outcome, antepartum: Status: Acute
== END 2025-02-06 10:28 | disposition home or self-care (01) ==
LOC: HODSOBC 09:58
PROVIDERS: Supervising Provider Obstetrics & Gynecology; Visit Provider Obstetrics & Gynecology
DX: O09.892 Supervision of other high risk pregnancies, second trimester (principal); O99.891 Other specified diseases and conditions complicating pregnancy; M54.50 Low back pain, unspecified; Z3A.23 23 weeks gestation of pregnancy
CPT/HCPCS: 99213; G0463

== ENCOUNTER 2025-03-08 10:55 | Outpatient (AMB) | payer MEDICAID, SELFPAY ==
--- NOTE | 2025-03-08 11:03 | OBCLNT_ITS ---
Vital Signs 03/08/25 11:04 Height 1.55 m Height Method Stated Weight 63.503 kg Weight Measurement Method Standing Scale BMI 26.4 BP 129/82 Blood Pressure Source Automatic Cuff Blood Pressure Location Right Upper Arm Position Sitting Respiration 18 Pulse 113 H Pulse Source Monitor Temp 97.6 F Temp Source Temporal Artery Scan Pulse Oximetry (%) 98 Oxygen Delivery Method Room Air Allergies/Home Meds Allergies & Medications Allergies No Known Allergies Allergy (Verified 04/21/25 11:01) Medication Reconciliation vitamins with calcium no.72-iron 27 mg-folic acid 1 mg tablet ( Vitamins Plus Low Iron) 1 tab PO QDAY 90 days #90 tabs 11/01/24 [Rx Confirmed 04/21/25] Intake Visit Data Collection New Patient or Established: Established Patient (seen at [facility] within 3 years) Reason for Visit:: OBC Seen by Clinical Staff ONLY (RN/MA): No Dental Internship Required: No Do You Feel Safe at Home: Yes Authorities Contacted: N/A PCP or OBGYN visit in last 3 months: Yes Date of Last PCP or OBGYN visit: 02/06/25 Hx Now: No Are you currently on any form of Control: No Pain Present Currently: Yes Smoking Status Smoking Status: Never smoker Immunizations Flu Vaccine in the Last 12 Months: No Flu Vaccine Exclusion Criteria: No Exclusion Criteria Questionnaires Covid-19 Vaccine Questionnaire Has patient been vacinated for Covid-19 Have you been vacinated for Covid-19: No PHQ-9 PHQ-2 Over the last 2 weeks, how often have you been bothered by any of the following problems? 1. Little interest or pleasure in doing things: not at all 2. Feeling down, depressed, or hopeless: not at all Total score: 0 PHQ-9 3. Trouble falling or staying asleep, or sleeping too much: Not at all 4. Feeling tired or having little energy: Not at all 5. Poor appetite or overeating: Not at all 6. Feeling bad about yourself - or that you are a failure or have let yourself or your family down: Not at all 7. Trouble concentrating on things, such as reading the newspaper or watching television: Not at all 8. Moving or speaking so slowly that other people could have noticed? - Or the opposite - being so fidgety or restless that you have been moving around a lot more than usual: not at all 9. Thoughts that you would be better off or of hurting yourself in some way: Not at all Total score: 0 If you checked off any problems, how difficult have these problems made it for you to do your work, take care of things at home, or get along with other people?: not difficult at all Source: Developed by Drs. Fabricio Torres, Juany Rivas, Luis Marshall and colleagues, with an educational cristo from [employer]. 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 Past Medical History: No Hx Neurological Disorders, No Hx Breast Cancer, No Hx Cardiac Disorders, No Hx Cancer, No Hx Blood Disorders, No Hx Gastrointestinal Disorders, No Hx Renal Disease, No Hx Diabetes Mellitus Type 1 and No Hx Diabetes Mellitus Type 2 Care OB Visit Log OB Flowsheet Initial Weight: Not Recorded Date -?-?-?-?-?-?-?-?-?-?-?-?- EGA Weight BP Alb Glu CTX Pres Fundal ht FHR Mov Dilation Station Effacement Hx Notes Visit Note 11/01/24 -?-?-?-?-?-?-?-?-?-?-?-?- 9w 1d 55.508 kg 123/77 Marcia Loera, at 9+4 wks for initial intake, LMP 08-29-25, CHERRIE 2--26 per U/S, hx of and SAB requiring D&C 12/25, 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 No CTX/LOF/VB, good FM. Hx primary ciliary dyskinesia. Prior US noted dextrocardia. All initial labs reassuring: O+, rubella immune, negative RPR/Hep B/C/HIV/GC/CT. CBC WNL. NIPT negative for aneuploidy, male fetus. SMA and CF screening negative. Plan: Referred urgently to [facility] at [facility] for further evaluation of dextrocardia and possible ciliary dyskinesia; appointment scheduled for next Thursday. Pt to bring labs to [facility] visit. F/u in 2 weeks to review MFM findings. Continue vitamins. 12/05/24 -?-?-?-?-?-?-?-?-?-?-?-?- 14w 0d 56.472 kg 118/82 absent 155 - Marcia Ferrara is a female presenting for a follow-up visit regarding her . - Patient had an ultrasound on November 25 at [facility]. - Reports being told by the trace evidence technician that it was good - Denies significant weight gain at this stage of - Reports some forgetfulness, which she attributes to hormones - Continues to take prescribed vitamins Plan - Schedule next appointment in 2 months - Continue taking vitamins - Attend 18-20 week ultrasound appointme nt in January - Follow all precautions - Return sooner if any issues arise 01/24/25 -?-?-?-?-?-?-?-?-?-?-?-?- 21w 1d 59.988 kg 121/82 absent unstable 167 active - She reports lower back pain that started on Thursday. - Pain occurs when lying down and tryi ng to turn over - No specific trigger identified such as lifting or twisting - Patient notes that since starting pr egnancy, she has experienced what she thought was normal stretching, but lately the pain has been more pronounced - She reports nosebleeds occurring twice this past week. - Episodes occurred while working with out any identified trigger - Initially thought symptoms might be related to illness or allergies - Bleeding was not severe and did not require holding pressure - She denies UTI symptoms including freq uency and urgency. - She denies uterine cramping. Plan - [place]trasound [facility] kidneys and baby [place] [facility] [place] - Basic blood work - Urine analysis - Follow-up appointment in 4 weeks - Next ultrasound to check on pyelectasi s 02/06/25 -?-?-?-?-?-?-?-?-?-?-?-?- 23w 0d 60.895 kg 115/76 absent unstable 160 active - She reports an episode of bleeding approximately one week ago. - Bleeding has since resolved. - Ultrasound performed during that vis it showed everything looked good. - She is experiencing significant back p ain that she describes as sciatica. - Pain starts from the buttock and rad iates down. - Back pain is impacting her ability t o work, making it more and more tough. 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 - She reports no contractions, cramping, or other problems currently. - She feels she is not gaining a lot of weight but is eating adequately. - She denies indigestion or loose motion s. - Previous complaint of nosebleeds from last appointment has resol ed. - Provide disability note for patient to stop working immediately due to high-risk factors and heavy lifting (40 pounds) at work - Schedule follow-up appointment in 4 we eks - Order one-hour glucose test for diabet es screening - Recommend support belt for b ack pain relief 03/08/25 -?-?-?-?-?-?-?-?-?-?-?-?- 27w 2d 63.503 kg 129/82 absent cephalic 156 active - Marcia Ferrara is a female at 27 weeks and 2 days gestation presenting for routine visit. - She reports feeling the baby pushing i nto the uterus with stretching sensations that feel like something is tearing. - She denies diabetes based on normal glucose tolerance test result s. - Next tests due around 30 weeks (next month) - Follow-up ultrasound in 2 months for m ild kidney dilatation - Return to [facility] at approximately 32 weeks for weight measurement - Follow up here in 4 weeks - After next visit, appointments will be come every 2 weeks 04/21/25 -?-?-?-?-?-?-?-?-?-?-?-?- 33w 4d 66.281 kg 113/75 occasional cephalic 15 5 active Marcia Loera presents for routine visit at 33 weeks and 4 days gestation. Patient has a history of prior delivery. No contractions, LOF, VB and reports goo d FM. Patient reports back pain. Denies JOHNSTON, VC, and epigastric pain. - Scheduled repeat section for May 30 at 12:30 PM at 39 weeks gestation - Return in 2 weeks, then weekly appoint ments thereafter - Obtain support belt from Speedy persaud for back pain relief - Sleep on side with pillow behind shoul delia - Return to hospital if experiencing con tractions, discomfort, or cervical dilation for earlier delivery - Ultrasound measurements can be perform ed at current facility rather than returning to specialist in [place] CHERRIE Calculator Estimated Delivery Date Method Current WG Current Estimate 06/05/25 LMP (Certain) 34w 3d Other Estimates 06/04/25 Ultrasound #1 34w 4d Specific Issue/Plans Laboratory, Imaging, and Diagnostic Test Results - Initial visit: - Blood group: O positive - Rubella: Immune - RPN: Non-reactive - Hepatitis B: Negative - Hepatitis C: Negative - Antibody screen: Negative - HIV: Negative - Gonorrhea: Negative - Chlamydia: Negative - CBC: Within normal limits - Hemoglobin: 12.2 g/dL - Platelets: 3005 (likely a slackline operator error, should be 300.5) - NIPT (Non-Invasive Testing): Negative - sex: Male - SMA (Spinal Muscular Atrophy) testing: Negative Notes Visit Date: 03/08/25 Last Updated by: Mayito De La Cruz MD - echocardiogram (02/17/2025): Normal echo, normal heart anatomy - Ultrasound (02/20/2025): - Cervical length: 4.3 cm - Estimated weight: 1 lb 15 oz (882 grams), 90th percentile - measurements: appropriate for gestational age, measuring one week ahead - Mild renal dilatation noted, described as very small Visit Date: 01/24/25 Last Updated by: Mayito De La Cruz MD - [facility] ultrasound (January 10, 2025): Single living fetus, gestational age 18 weeks and 4 days, normal amniotic fluid, mild pyelectasis 5.2 mm on the left and 4.6 mm on the right, bladder appeared normal, ureters were not seen, cervix 3.3 centimeters with no funneling, placenta fundal posterior with no previa, normal uterus and adnexa Problem List - , 21 weeks and 1 day - Nosebleeds - Low back pain - Pyelectasis of fetus - History of dextrocardia in previous - History of primary ciliary dyskinesia in previous Office Procedures OBC Clinic LOC & Office Proc's Nursing/Assessment Patient Status: Established Patient OB Clinic Nursing Assessment: Medication Reconciliation, Update PMH in EMR and Vital Signs OB Clinic Coordination of Care: Complex Care and Chronic Disease 1-5, Education Complex Pt/Fam, Consent,records obtained, informed consent, Lab and Imaging orders, Results/Orders obtained and Staff clarify orders Special Needs: Heart tones Established Patient Charge Established Patient Point Assignment: 140 Established Patient Point Charge: EP Level 4 (120-155) Assessment & Plan Diagnosis / Problem List (1) Maternal care for unspecified type scar from previous delivery: Status: Acute (2) Supervision of high risk , unspecified, third trimester: Status: Acute (3) with prior adverse outcome, antepartum: Status: Acute Plan Problem List - at 27 weeks 2 days gestation - mild renal dilatation Assessment 27-week 2-day intrauterine with normal one-hour glucose tolerance test (130 mg/dL, negative for gestational diabetes). echocardiogram performed on 02/17 shows normal cardiac anatomy. Recent ultrasound on 02/20 demonstrates weight of 882 grams (1 pound 15 ounces) at 90th percentile, measuring one week ahead of gestational age. Cervical length measures 4.3 centimeters. Mild renal pelvic dilatation noted on imaging. heart rate of 156 bpm is within normal limits. Patient reports uterine stretching sensation. Plan - Next tests due around 30 weeks (next month) - Follow-up ultrasound in 2 months for mild kidney dilatation - Return to [facility] in April at approximately 32 weeks for weight measurement - Follow up here in 4 weeks - After next visit, appointments will become every 2 weeks 1. Progress Reviewed gestational age (27 weeks 2 days), growth (baby measuring 1 pound 15 ounces, 882 grams, 90th percentile, measuring one week ahead), and heart rate (156 bpm, normal). Planned frequent visits (every 4 weeks until 32 weeks, then every 2 weeks). 2. Instructed patient to monitor movements and report decreases immediately. 3. Testing Counseled on routine third-trimester labs per guidelines (next tests due around 30 weeks). Discussed potential need for ultrasound or monitoring based on risk factors. 4. Preeclampsia Precaution Educated on preeclampsia signs: severe headache, vision changes, right upper quadrant pain, sudden swelling. Advised urgent reporting of symptoms and discussed blood pressure monitoring if high risk. 5. Labor Precautions Reviewed labor signs: regular contractions, pelvic pressure, back pain, bleeding, or fluid leakage. Instructed to seek immediate care for these symptoms. 6. Lifestyle and Delivery Preparation Reinforced vitamins, nutrition, and safe activity. Discussed plan, pain management, and . Advised on labor preparation (e.g., hospital bag) and expectations. 7. Psychosocial Support Assessed emotional well-being and offered resources for mental health or parenting support.
[2025-03-08 11:04] VITALS: BP 129/82; PULSE 113; RESP 18; TEMP 36.4; O2SAT 98; BMI 26.4
== END 2025-03-08 11:25 | disposition home or self-care (01) ==
LOC: HODSOBC 10:55
PROVIDERS: Supervising Provider Obstetrics & Gynecology; Visit Provider Obstetrics & Gynecology
DX: O09.292 Supervision of pregnancy with other poor reproductive or obstetric history, second trimester (principal); O34.219 Maternal care for unspecified type scar from previous cesarean delivery; O35.EXX0 Maternal care for other (suspected) fetal abnormality and damage, fetal genitourinary anomalies, not applicable or unspecified; Z3A.27 27 weeks gestation of pregnancy
CPT/HCPCS: 99214; G0463

== ENCOUNTER 2025-04-11 14:10 | Outpatient (AMB) | payer MEDICAID, SELFPAY ==
--- NOTE | 2025-04-11 15:19 | OBCLNT_ITS ---
Vital Signs 04/11/25 15:20 Height 1.55 m Height Method Stated Weight 65.544 kg Weight Measurement Method Standing Scale BMI 27.3 BP 103/68 Blood Pressure Source Automatic Cuff Blood Pressure Location Right Upper Arm Position Sitting Respiration 18 Pulse 90 Pulse Source Monitor Temp 97.6 F Temp Source Temporal Artery Scan Pulse Oximetry (%) 97 Oxygen Delivery Method Room Air Allergies/Home Meds Allergies & Medications Allergies No Known Allergies Allergy (Verified 04/11/25 15:43) Medication Reconciliation vitamins with calcium no.72-iron 27 mg-folic acid 1 mg tablet ( Vitamins Plus Low Iron) 1 tab PO QDAY 90 days #90 tabs 11/01/24 [Rx Confirmed 04/11/25] Immunizations Immunizations Flu Vaccine in the Last 12 Months: No Flu Vaccine Exclusion Criteria: No Exclusion Criteria Care OB Visit Log OB Flowsheet Initial Weight: Not Recorded Date -?-?-?-?-?-?-?-?-?-?-?-?- EGA Weight BP Alb Glu CTX Pres Fundal ht FHR Mov Dilation Station Effacement Hx Notes Visit Note 11/01/24 -?-?-?-?-?-?-?-?-?-?-?-?- 9w 1d 55.508 kg 123/77 Marcia Loera, at 9+4 wks for initial intake, LMP 4-25, CHERRIE 2-2-26 per U/S, hx of and SAB requiring D&C 12/25, 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 No CTX/LOF/VB, good FM. Hx primary ciliary dyskinesia. Prior US noted dextrocardia. All initial labs reassuring: O+, rubella immune, negative RPR/Hep B/C/HIV/GC/CT. CBC WNL. NIPT negative for aneuploidy, male fetus. SMA and CF screening negative. Plan: Referred urgently to [facility] at [facility] for further evaluation of dextrocardia and possible ciliary dyskinesia; appointment scheduled for next Thursday. Pt to bring labs to MFM visit. F/u in 2 weeks to review MFM findings. Continue vitamins. 12/05/24 -?-?-?-?-?-?-?-?-?-?-?-?- 14w 0d 56.472 kg 118/82 absent 155 - Marcia Ferrara is a female presenting for a follow-up visit regarding her . - Patient had an ultrasound on November 25 at [facility]. - Reports being told by the kennel technician that it was good - Denies significant weight gain at this stage of - Reports some forgetfulness, which she attributes to hormones - Continues to take prescribed vitamins Plan - Schedule next appointment in 2 months - Continue taking vitamins - Attend 18-20 week ultrasound appointme nt in January - Follow all precautions - Return sooner if any issues arise 01/24/25 -?-?-?-?-?-?-?-?-?-?-?-?- 21w 1d 59.988 kg 121/82 absent unstable 167 active - She reports lower back pain that started on Thursday. - Pain occurs when lying down and tryi ng to turn over - No specific trigger identified such as lifting or twisting - Patient notes that since starting pr egnancy, she has experienced what she thought was normal stretching, but lately the pain has been more pronounced - She reports nosebleeds occurring twice this past week. - Episodes occurred while working with out any identified trigger - Initially thought symptoms might be related to illness or allergies - Bleeding was not severe and did not require holding pressure - She denies UTI symptoms including freq uency and urgency. - She denies uterine cramping. Plan - Ultrasound of kidneys and baby at [facility] [place] - Basic blood work - Urine analysis - Follow-up appointment in 4 weeks - Next ultrasound to check on pyelectasi s 02/06/25 -?-?-?-?-?-?-?-?-?-?-?-?- 23w 0d 60.895 kg 115/76 absent unstable 160 active - She reports an episode of bleeding approximately one week ago. - Bleeding has since resolved. - Ultrasound performed during that vis it showed everything looked good. - She is experiencing significant back p ain that she describes as sciatica. - Pain starts from the buttock and rad iates down. - Back pain is impacting her ability t o work, making it more and more tough. 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 - She reports no contractions, cramping, or other problems currently. - She feels she is not gaining a lot of weight but is eating adequately. - She denies indigestion or loose motion s. - Previous complaint of nosebleeds from last appointment has resol ed. - Provide disability note for patient to stop working immediately due to high-risk factors and heavy lifting (40 pounds) at work - Schedule follow-up appointment in 4 we eks - Order one-hour glucose test for diabet es screening - Recommend support belt for b ack pain relief CHERRIE Calculator Estimated Delivery Date Method Current WG Current Estimate 06/05/25 LMP (Certain) 32w 1d Other Estimates 06/04/25 Ultrasound #1 32w 2d Specific Issue/Plans Laboratory, Imaging, and Diagnostic Test Results - Initial visit: - Blood group: O positive - Rubella: Immune - RPN: Non-reactive - Hepatitis B: Negative - Hepatitis C: Negative - Antibody screen: Negative - HIV: Negative - Gonorrhea: Negative - Chlamydia: Negative - CBC: Within normal limits - Hemoglobin: 12.2 g/dL - Platelets: 3005 (likely a steam and power superintendent error, should be 300.5) - NIPT (Non-Invasive Testing): Negative - sex: Male - SMA (Spinal Muscular Atrophy) testing: Negative Notes Visit Date: 01/24/25 Last Updated by: Mayito De La Cruz MD - [facility] ultrasound (January 10, 2025): Single living fetus, gestational age 18 weeks and 4 days, normal amniotic fluid, mild pyelectasis 5.2 mm on the left and 4.6 mm on the right, bladder appeared normal, ureters were not seen, cervix 3.3 centimeters with no funneling, placenta fundal posterior with no previa, normal uterus and adnexa Problem List - , 21 weeks and 1 day - Nosebleeds - Low back pain - Pyelectasis of fetus - History of dextrocardia in previous - History of primary ciliary dyskinesia in previous Office Procedures OBC Clinic LOC & Office Proc's Nursing/Assessment Patient Status: Established Patient OB Clinic Nursing Assessment: Medication Reconciliation, Update PMH in EMR and Vital Signs OB Clinic Coordination of Care: Complex Care and Chronic Disease 1-5, Education Complex Pt/Fam, Consent,records obtained, informed consent, Lab and Imaging orders, Results/Orders obtained and Staff clarify orders Special Needs: Heart tones Established Patient Charge Established Patient Point Assignment: 140 Established Patient Point Charge: EP Level 4 (120-155)
[2025-04-11 15:20] VITALS: BP 103/68; PULSE 90; RESP 18; TEMP 36.4; O2SAT 97; BMI 27.3
== END 2025-04-11 15:43 | disposition home or self-care (01) ==
LOC: HODSOBC 14:10
PROVIDERS: Supervising Provider Obstetrics & Gynecology; Visit Provider Obstetrics & Gynecology
DX: O09.893 Supervision of other high risk pregnancies, third trimester (principal); O35.EXX0 Maternal care for other (suspected) fetal abnormality and damage, fetal genitourinary anomalies, not applicable or unspecified; Z3A.32 32 weeks gestation of pregnancy
CPT/HCPCS: 99214; G0463

== ENCOUNTER 2025-04-21 10:53 | Outpatient (AMB) | payer MEDICAID, SELFPAY ==
--- NOTE | 2025-04-21 10:59 | OBCLNT_ITS ---
Vital Signs 04/21/25 11:00 Height 1.55 m Height Method Stated Weight 66.281 kg Weight Measurement Method Standing Scale BMI 27.6 BP 113/75 Blood Pressure Source Automatic Cuff Blood Pressure Location Right Upper Arm Position Sitting Respiration 16 Pulse 99 Pulse Source Monitor Temp 97.6 F Temp Source Temporal Artery Scan Pulse Oximetry (%) 97 Oxygen Delivery Method Room Air Allergies/Home Meds Allergies & Medications Allergies No Known Allergies Allergy (Verified 04/21/25 11:01) Medication Reconciliation vitamins with calcium no.72-iron 27 mg-folic acid 1 mg tablet ( Vitamins Plus Low Iron) 1 tab PO QDAY 90 days #90 tabs 11/01/24 [Rx Confirmed 04/21/25] Immunizations Immunizations Flu Vaccine in the Last 12 Months: No Flu Vaccine Exclusion Criteria: No Exclusion Criteria Care OB Visit Log OB Flowsheet Initial Weight: Not Recorded Date -?-?-?-?-?-?-?-?-?-?-?-?- EGA Weight BP Alb Glu CTX Pres Fundal ht FHR Mov Dilation Station Effacement Hx Notes Visit Note 11/01/24 -?-?-?-?-?-?-?-?-?-?-?-?- 9w 1d 55.508 kg 123/77 Marcia Loera, at 9+4 wks for initial intake, LMP 4-25, CHERRIE 2--26 per U/S, hx of and SAB requiring D&C 12/25, 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 No CTX/LOF/VB, good FM. Hx primary ciliary dyskinesia. Prior US noted dextrocardia. All initial labs reassuring: O+, rubella immune, negative RPR/Hep B/C/HIV/GC/CT. CBC WNL. NIPT negative for aneuploidy, male fetus. SMA and CF screening negative. Plan: Referred urgently to [facility] at [facility] for further evaluation of dextrocardia and possible ciliary dyskinesia; appointment scheduled for next Thursday. Pt to bring labs to M visit. F/u in 2 weeks to review MFM findings. Continue vitamins. 12/05/24 -?-?-?-?-?-?-?-?-?-?-?-?- 14w 0d 56.472 kg 118/82 absent 155 - Marcia Ferrara is a female presenting for a follow-up visit regarding her . - Patient had an ultrasound on November 25 at [facility]. - Reports being told by the machine operator slitter technician that it was good - Denies significant weight gain at this stage of - Reports some forgetfulness, which she attributes to hormones - Continues to take prescribed vitamins Plan - Schedule next appointment in 2 months - Continue taking vitamins - Attend 18-20 week ultrasound appointme nt in January - Follow all precautions - Return sooner if any issues arise 01/24/25 -?-?-?-?-?-?-?-?-?-?-?-?- 21w 1d 59.988 kg 121/82 absent unstable 167 active - She reports lower back pain that started on Thursday. - Pain occurs when lying down and tryi ng to turn over - No specific trigger identified such as lifting or twisting - Patient notes that since starting pr egnancy, she has experienced what she thought was normal stretching, but lately the pain has been more pronounced - She reports nosebleeds occurring twice this past week. - Episodes occurred while working with out any identified trigger - Initially thought symptoms might be related to illness or allergies - Bleeding was not severe and did not require holding pressure - She denies UTI symptoms including freq uency and urgency. - She denies uterine cramping. Plan - Ultrasound of kidneys and baby at [facility] - Basic blood work - Urine analysis - Follow-up appointment in 4 weeks - Next ultrasound to check on pyelectasi s 02/06/25 -?-?-?-?-?-?-?-?-?-?-?-?- 23w 0d 60.895 kg 115/76 absent unstable 160 active - She reports an episode of bleeding approximately one week ago. - Bleeding has since resolved. - Ultrasound performed during that vis it showed everything looked good. - She is experiencing significant back p ain that she describes as sciatica. - Pain starts from the buttock and rad iates down. - Back pain is impacting her ability t o work, making it more and more tough. 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 - She reports no contractions, cramping, or other problems currently. - She feels she is not gaining a lot of weight but is eating adequately. - She denies indigestion or loose motion s. - Previous complaint of nosebleeds from last appointment has [facility] ed. - Provide disability note for patient to stop working immediately due to high-risk factors and heavy lifting (40 pounds) at work - Schedule follow-up appointment in 4 we eks - Order one-hour glucose test for diabet es screening - Recommend support belt for b ack pain relief 04/21/25 -?-?-?-?-?-?-?-?-?-?-?-?- 33w 4d 66.281 kg 113/75 occasional cephalic 15 5 active Marcia Loera presents for routine visit at 33 weeks and 4 days gestation. Patient has a history of prior delivery. No contractions, LOF, VB and reports goo d FM. Patient reports back pain. Denies JOHNSTON, VC, and epigastric pain. - Scheduled repeat section for May 30 at 12:30 PM at 39 weeks gestation - Return in 2 weeks, then weekly appoint ments thereafter - Obtain support belt from [email or web address] for back pain relief - Sleep on side with pillow behind shoul delia - Return to hospital if experiencing con tractions, discomfort, or cervical dilation for earlier delivery - Ultrasound measurements can be perform ed at current facility rather than returning to specialist in [place] CHERRIE Calculator Estimated Delivery Date Method Current Current Estimate 06/05/25 LMP (Certain) 33w 4d Other Estimates 06/04/25 Ultrasound #1 33w 5d Specific Issue/Plans Laboratory, Imaging, and Diagnostic Test Results - Initial visit: - Blood group: O positive - Rubella: Immune - RPN: Non-reactive - Hepatitis B: Negative - Hepatitis C: Negative - Antibody screen: Negative - HIV: Negative - Gonorrhea: Negative - Chlamydia: Negative - CBC: Within normal limits - Hemoglobin: 12.2 g/dL - Platelets: 3005 (likely a mens locker room attendant error, should be 300.5) - NIPT (Non-Invasive Testing): Negative - sex: Male - SMA (Spinal Muscular Atrophy) testing: Negative Notes Visit Date: 01/24/25 Last Updated by: Mayito De La Cruz MD - [facility] ultrasound (January 10, 2025): Single living fetus, gestational age 18 weeks and 4 days, normal amniotic fluid, mild pyelectasis 5.2 mm on the left and 4.6 mm on the right, bladder appeared normal, ureters were not seen, cervix 3.3 centimeters with no funneling, placenta fundal posterior with no previa, normal uterus and adnexa Problem List - , 21 weeks and 1 day - Nosebleeds - Low back pain - Pyelectasis of fetus - History of dextrocardia in previous - History of primary ciliary dyskinesia in previous Office Procedures OBC Clinic LOC & Office Proc's Nursing/Assessment Patient Status: Established Patient OB Clinic Nursing Assessment: Medication Reconciliation, Update PMH in EMR and Vital Signs OB Clinic Coordination of Care: Complex Care and Chronic Disease 1-5, Education Complex Pt/Fam, Consent,records obtained, informed consent, Lab and Imaging orders, Results/Orders obtained and Staff clarify orders Special Needs: Heart tones Established Patient Charge Established Patient Point Assignment: 140 Established Patient Point Charge: EP Level 4 (120-155) Assessment & Plan Diagnosis / Problem List (1) Supervision of high risk , unspecified, third trimester: Status: Acute (2) with prior adverse outcome, antepartum: Status: Acute (3) Maternal care for unspecified type scar from previous delivery: Status: Acute Plan Problem List - , third trimester - History of delivery - Back pain in Assessment 33-week 4-day gestation in a patient with history of previous section, currently scheduled for repeat delivery at 39 weeks on May 30. Patient reports recent back pain and discomfort. Recent ultrasound shows estimated weight of 5 pounds 7 ounces. Patient has family history of ciliary dyskinesia and dystrocardia. heart rate is 129 bpm, which is within normal limits. Plan - Scheduled repeat section for May 30 at 12:30 PM at 39 weeks gestation - Return in 2 weeks, then weekly appointments thereafter - Obtain support belt from [facility] for back pain relief - Sleep on side with pillow behind shoulder - Return to hospital if experiencing contractions, discomfort, or cervical dilation for earlier delivery - Ultrasound measurements can be performed at current facility rather than returning to specialist in [place] 1. Progress Reviewed gestational age at 33 weeks 4 days, growth with recent ultrasound showing estimated weight of 5 pounds 7 ounces, and heart rate of 129 bpm which is normal. Planned frequent visits every 2 weeks until 36 weeks, then weekly. 2. Instructed patient to monitor movements and report decreases immediately. 3. Testing Counseled on routine third-trimester labs per guidelines. Discussed potential need for ultrasound or monitoring based on risk factors. 4. Preeclampsia Precaution Educated on preeclampsia signs: severe headache, vision changes, right upper quadrant pain, sudden swelling. Advised urgent reporting of symptoms and discussed blood pressure monitoring if high risk. 5. Labor Precautions Reviewed labor signs: regular contractions, pelvic pressure, back pain, bleeding, or fluid leakage. Instructed to seek immediate care for these symptoms. 6. Lifestyle and Delivery Preparation Reinforced vitamins, nutrition, and safe activity. Recommended support belt for back pain relief. Discussed scheduled repeat section on May 30 at 12:30 PM at 39 weeks gestation due to previous section and hospital policy. Advised on sleep positioning with pillow support and expectations. 7. Psychosocial Support Assessed emotional well-being and offered resources for mental health or parenting support.
[2025-04-21 11:00] VITALS: BP 113/75; PULSE 99; RESP 16; TEMP 36.4; O2SAT 97; BMI 27.6
== END 2025-04-21 11:28 | disposition home or self-care (01) ==
LOC: HODSOBC 10:53
PROVIDERS: Supervising Provider Obstetrics & Gynecology; Visit Provider Obstetrics & Gynecology
DX: O09.293 Supervision of pregnancy with other poor reproductive or obstetric history, third trimester (principal); O34.219 Maternal care for unspecified type scar from previous cesarean delivery; O09.893 Supervision of other high risk pregnancies, third trimester; O99.891 Other specified diseases and conditions complicating pregnancy; M54.50 Low back pain, unspecified; Z3A.33 33 weeks gestation of pregnancy
CPT/HCPCS: 99214; G0463

== ENCOUNTER 2025-05-02 13:16 | Outpatient (AMB) | payer MEDICAID, SELFPAY ==
[2025-05-02 13:53] VITALS: BP 117/78; PULSE 92; RESP 18; TEMP 36.2; O2SAT 98; BMI 28.1
--- NOTE | 2025-05-02 13:53 | AMB.OBPNC ---
Vital Signs 05/02/25 13:53 Height 1.55 m Height Method Stated Weight 67.699 kg Weight Measurement Method Standing Scale BMI 28.1 BP 117/78 Blood Pressure Source Automatic Cuff Blood Pressure Location Left Upper Arm Position Sitting Respiration 18 Pulse 92 Pulse Source Monitor Temp 97.2 F Temp Source Oral Pulse Oximetry (%) 98 Oxygen Delivery Method Room Air Allergies/Home Meds Allergies & Medications Allergies No Known Allergies Allergy (Verified 05/02/25 14:21) Medication Reconciliation vitamins with calcium no.72-iron 27 mg-folic acid 1 mg tablet ( Vitamins Plus Low Iron) 1 tab PO QDAY 90 days #90 tabs 11/01/24 [Rx Confirmed 05/02/25] Immunizations Immunizations Flu Vaccine in the Last 12 Months: No Flu Vaccine Exclusion Criteria: No Exclusion Criteria Care OB Visit Log OB Flowsheet Initial Weight: Not Recorded Date <del>?</del> EGA Weight BP Alb Glu CTX Pres Fundal ht FHR Mov Dilation Station Effacement Hx Notes Visit Note 11/01/24 <del>?</del> 9w 1d 55.508 kg 123/77 Marcia Loera, at 9+4 wks for initial intake, LMP 08-29-24, CHERRIE 2-06-29 per U/S, hx of and SAB requiring D&C 12/25, daughter with primary ciliary dyskinesia and dextrocardia U/S shows IUP with FHB 173 bpm confirming 9+4 wks 11/15/24 <del>?</del> 11w 1d 56.302 kg 122/84 165 , 11w3d. No CTX/LOF/VB, good FM. Hx primary ciliary dyskinesia. Prior US noted dextrocardia. All initial labs reassuring: O+, rubella immune, negative RPR/Hep B/C/HIV/GC/CT. CBC WNL. NIPT negative for aneuploidy, male fetus. SMA and CF screening negative. Plan: Referred urgently to [facility] at [facility] for further evaluation of dextrocardia and possible ciliary dyskinesia; appointment scheduled for next Thursday. Pt to bring labs to MFM visit. F/u in 2 weeks to review MFM findings. Continue vitamins. 12/05/24 <del>?</del> 14w 0d 56.472 kg 118/82 absent 155 - Marcia Ferrara is a female presenting for a follow-up visit regarding her . - Patient had an ultrasound on November [address] [facility]. - Reports being told by the emergency veterinary technician that it was good - Denies significant weight gain at this stage of - Reports some forgetfulness, which she attributes to hormones - Continues to take prescribed vitamins Plan - Schedule next appointment in 2 months - Continue taking vitamins - Attend 18-20 week ultrasound appointment in January - Follow all precautions - Return sooner if any issues arise 01/24/25 <del>?</del> 21w 1d 59.988 kg 121/82 absent unstable 167 active - She reports lower back pain that started on Thursday. - Pain occurs when lying down and trying to turn over - No specific trigger identified such as lifting or twisting - Patient notes that since starting , she has experienced what she thought was normal stretching, but lately the pain has been more pronounced - She reports nosebleeds occurring twice this past week. - Episodes occurred while working without any identified trigger - Initially thought symptoms might be related to illness or allergies - Bleeding was not severe and did not require holding pressure - She denies UTI symptoms including frequency and urgency. - She denies uterine cramping. Plan - Ultrasound of kidneys and baby at hospital - Basic blood work - Urine analysis - Follow-up appointment in 4 weeks - Next ultrasound to check on pyelectasis 02/06/25 <del>?</del> 23w 0d 60.895 kg 115/76 absent unstable 160 active - She reports an episode of bleeding approximately one week ago. - Bleeding has since resolved. - Ultrasound performed during that visit showed everything looked good. - She is experiencing significant back pain that she describes as sciatica. - Pain starts from the buttock and radiates down. - Back pain is impacting her ability to work, making it more and more tough. 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 - She reports no contractions, cramping, or other problems currently. - She feels she is not gaining a lot of weight but is eating adequately. - She denies indigestion or loose motions. - Previous complaint of nosebleeds from last appointment has resolved. - Provide disability note for patient to stop working immediately due to high-risk factors and heavy lifting (40 pounds) at work - Schedule follow-up appointment in 4 weeks - Order one-hour glucose test for diabetes screening - Recommend support belt for back pain relief 03/08/25 <del>?</del> 27w 2d 63.503 kg 129/82 absent cephalic 156 active - Marcia Ferrara is a female at 27 weeks and 2 days gestation presenting for routine visit. - She reports feeling the baby pushing into the uterus with stretching sensations that feel like something is tearing. - She denies diabetes based on normal glucose tolerance test results. - Next tests due around 30 weeks (next month) - Follow-up ultrasound in 2 months for mild kidney dilatation - Return to [facility] in April at approximately 32 weeks for weight measurement - Follow up here in 4 weeks - After next visit, appointments will become every 2 weeks 04/21/25 <del>?</del> 33w 4d 66.281 kg 113/75 occasional cephalic 155 active Marcia Loera presents for routine visit at 33 weeks and 4 days gestation. Patient has a history of prior delivery. No contractions, LOF, VB and reports good FM. Patient reports back pain. Denies JOHNSTON, VC, and epigastric pain. - Scheduled repeat section for May 30 at 12:30 PM at 39 weeks gestation - Return in 2 weeks, then weekly appointments thereafter - Obtain support belt from [facility] for back pain relief - Sleep on side with pillow behind shoulder - Return to hospital if experiencing contractions, discomfort, or cervical dilation for earlier delivery - Ultrasound measurements can be performed at current facility rather than returning to specialist in [place] 05/02/25 <del>?</del> 35w 1d 67.699 kg 117/78 occasional cephalic 145 active - She reports experiencing pelvic pressure that started recently. - Patient notes onset of discharge that began last night. - She describes the baby as active. - Patient denies leaking large amounts of fluid but acknowledges feeling wet. - Her previous went to almost 41 weeks and required induction, with no spontaneous labor. - Send patient to hospital 4th floor for testing to rule out rupture of membranes and amniotic fluid index (MELITON) - GBS culture obtained today - Schedule follow-up appointment with Harriett (exhibitions and collections manager) for next week - Schedule appointment with Dr. De La Cruz for the week after next - Hospital will perform amniocentesis and MELITON, then call with results CHERRIE Calculator Estimated Delivery Date Method Current WG Current Estimate 06/05/25 LMP (Certain) 35w 1d Other Estimates 06/04/25 Ultrasound #1 35w 2d Specific Issue/Plans Laboratory, Imaging, and Diagnostic Test Results - Initial visit: - Blood group: O positive - Rubella: Immune - RPN: Non-reactive - Hepatitis B: Negative - Hepatitis C: Negative - Antibody screen: Negative - HIV: Negative - Gonorrhea: Negative - Chlamydia: Negative - CBC: Within normal limits - Hemoglobin: 12.2 g/dL - Platelets: 3005 (likely a channel marketing specialist error, should be 300.5) - NIPT (Non-Invasive Testing): Negative - sex: Male - SMA (Spinal Muscular Atrophy) testing: Negative Notes Visit Date: 03/08/25 Last Updated by: Mayito De La Cruz MD - echocardiogram (02/17/2025): Normal echo, normal heart anatomy - Ultrasound (02/20/2025): - Cervical length: 4.3 cm - Estimated weight: 1 lb 15 oz (882 grams), 90th percentile - measurements: appropriate for gestational age, measuring one week ahead - Mild renal dilatation noted, described as very small Visit Date: 01/24/25 Last Updated by: Mayito De La Cruz MD - [facility] ultrasound (January 10, 2025): Single living fetus, gestational age 18 weeks and 4 days, normal amniotic fluid, mild pyelectasis 5.2 mm on the left and 4.6 mm on the right, bladder appeared normal, ureters were not seen, cervix 3.3 centimeters with no funneling, placenta fundal posterior with no previa, normal uterus and adnexa Problem List - , 21 weeks and 1 day - Nosebleeds - Low back pain - Pyelectasis of fetus - History of dextrocardia in previous - History of primary ciliary dyskinesia in previous Office Procedures OBC Clinic LOC & Office Proc's Nursing/Assessment Patient Status: Established Patient OB Clinic Nursing Assessment: Medication Reconciliation, Update PMH in EMR and Vital Signs OB Clinic Coordination of Care: Consent,records obtained, informed consent, Education Simp Pt/Fam, Lab and Imaging orders, Results/Orders obtained and Staff clarify orders Established Patient Charge Established Patient Point Assignment: 80 Established Patient Point Charge: EP Level 3 (80-115) Assessment & Plan Diagnosis / Problem List (1) Maternal care for unspecified type scar from previous delivery: Status: Acute Plan Problem List - Third trimester - kidney abnormalities - Suspected premature rupture of membranes Assessment 35-week and 1-day patient presenting with increased pelvic pressure and new onset clear vaginal discharge. Physical examination reveals closed cervix with head well-descended and cervix described as stretchy, along with significant clear fluid discharge raising concern for possible rupture of membranes. heart rate is reassuring at 133 bpm with reported normal activity. Patient has history of previous reaching 41 weeks requiring induction. GBS culture obtained during visit. Plan - Send patient to hospital 4th floor for testing to rule out rupture of membranes and amniotic fluid index (MELITON) - GBS culture obtained today - Schedule follow-up appointment with Harriett (exhibitions and collections manager) for next week - Schedule appointment with Dr. De La Cruz for the week after next - Hospital will perform amniocentesis and MELITON, then call with results 1. Progress Reviewed gestational age at 35 weeks 1 day, growth, and heart rate of 133 bpm. Patient reports increased pelvic pressure and discharge. Planned frequent visits with exhibitions and collections manager next week, then return visit in 2 weeks. 2. Instructed patient to monitor movements and report decreases immediately. Patient reports baby is active. 3. Testing Performed GBS culture as routine third-trimester screening. Referred to hospital for amniotic fluid testing and MELITON due to concern for possible rupture of membranes given increased clear discharge. 4. Preeclampsia Precaution Educated on preeclampsia signs: severe headache, vision changes, right upper quadrant pain, sudden swelling. Advised urgent reporting of symptoms and discussed blood pressure monitoring if high risk. 5. Labor Precautions Reviewed labor signs including fluid leakage. Patient presenting with increased clear discharge and pelvic pressure, prompting evaluation to rule out rupture of membranes. 6. Lifestyle and Delivery Preparation Reinforced vitamins, nutrition, and safe activity. Discussed plan, pain management, and . Advised on labor preparation (e.g., hospital bag) and expectations. 7. Psychosocial Support Assessed emotional well-being and offered resources for mental health or parenting support.
== END 2025-05-02 13:55 | disposition home or self-care (01) ==
LOC: HODSOBC 13:16
PROVIDERS: Supervising Provider Obstetrics & Gynecology; Visit Provider Obstetrics & Gynecology
DX: O09.293 Supervision of pregnancy with other poor reproductive or obstetric history, third trimester (principal); O34.219 Maternal care for unspecified type scar from previous cesarean delivery; O09.893 Supervision of other high risk pregnancies, third trimester; O35.EXX0 Maternal care for other (suspected) fetal abnormality and damage, fetal genitourinary anomalies, not applicable or unspecified; N89.8 Other specified noninflammatory disorders of vagina; O99.891 Other specified diseases and conditions complicating pregnancy; Z3A.35 35 weeks gestation of pregnancy; Z36.85 Encounter for antenatal screening for Streptococcus B
CPT/HCPCS: 99213; G0463